=== PATIENT | male | born 1985 | race Caucasian/White ===

== ENCOUNTER 2022-09-21 09:35 | Observation (INO) | payer MEDICAID, SELFPAY ==
[2022-09-21] VITALS (10 sets, daily range): BP systolic 105–160; BP diastolic 67–101; PULSE 86–116; RESP 16–20; TEMP 36.6–36.8; O2SAT 95–100; BMI 26.4
--- NOTE | ~2022-09-21 | CT_ITS ---
EXAMINATION: CT brain wo con DATE: 09/21/2022 09:56 INDICATION: Seizure. Syncope. TECHNIQUE: Computed tomography (CT) of the head was performed without intravenous contrast. Sagittal and coronal reconstructions were performed. The dose Octavio head The dose-length product was 681.00 mGy-cm. COMPARISON: None FINDINGS: No acute intracranial hemorrhage, acute infarction or abnormal extra axial fluid collection. Ventricl es are normal and symmetric. No mass/mass effect. The orbits, paranasal sinuses and mastoid air cells are normal. IMPRESSION: 1. Normal head CT. Reviewed, dictated and finalized at location A. IMPRESSION: 1. Normal head CT.
--- NOTE | ~2022-09-21 | MR_ITS ---
EXAMINATION: MR brain/brain stem wo/w con DATE: 09/22/2022 08:39 INDICATION: Seizure TECHNIQUE: Magnetic resonance imaging (MRI) of the brain and brainstem was performed without and with 17 mL Multihance intravenous contrast. Sequences included sagittal and axial T1-weighted SE, axial d iffusion-weighted FS SE, axial T2*-weighted GRE, axial T2-weighted FLAIR Propeller, axial T2-weighted there are approximately 16 scattered small foci Propeller, coronal T2-weighted FLAIR, and coronal T1 -weighted 3D FSPGR. Postcontrast axial T1-weighted SE was obtained. Apparent diffusion coefficient (A DC) maps were created. COMPARISON: Head CT dated 09/21/2022 FINDINGS: There are no areas of restricted diffusion to suggest acute infarction. No intracranial hemorrhage or abnormal intracranial mass lesion. There are scattered areas of nonspecific increased T2-weighted si gnal intensity in the cerebral white matter, predominantly involving the subcortical and periventricu lar white matter this patient on the coronal T2 FLAIR images and which is disproportionate for age. T here are no intraparenchymal signal abnormalities seen on the other pulse sequences. Bilateral hippoc ampi appear normal and symmetric. No evident braun matter heterotopias or other neuronal migrational a bnormalities. The ventricles are symmetric and normal in size. There are no abnormal extra-axial flui d collections. Flow voids are seen in the cerebral arteries on the T2-weighted sequences consistent w ith their expected patency. Visualized orbits and soft tissues are unremarkable. There are no areas o f abnormal enhancement on the post contrast images. IMPRESSION: 1. Mild nonspecific cerebral white matter disease which is disproportionate for age. The differential diagnosis includes premature chronic small vessel ischemic disease (especially if the patient has ca rdiovascular risk factors), demyelinating disease such as multiple sclerosis, acute disseminated ence phalomyelitis (ADEM) or CADASIL, drug abuse, vasculitis, or reactive astrocytosis (gliosis) secondary to nonspecific etiology. Reviewed, dictated and finalized at location B. IMPRESSION: 1. Mild nonspecific cerebral white matter disease which is disproportionate for age. The differential diagnosis includes premature chronic small vessel ischem ic disease (especially if the patient has cardiovascular risk factors), demyeli nating disease such as multiple sclerosis, acute disseminated encephalomyelitis (ADEM) or CADASIL, drug abuse, vasculitis, or reactive astrocytosis (gliosis) secondary to nonspecific etiology.
--- NOTE | 2022-09-21 09:38 | ECG_ITS ---
Measurements Intervals Craig Rate: 107 P: 44 UT: 132 QRS: -1 QRSD: 102 T: 50 QT: 330 QTc: 440 Interpretive Statements SINUS TACHYCARDIA DELAYED PRECORDIAL R/S TRANSITION ABNORMAL ECG NO PREVIOUS ECG AVAILABLE FOR COMPARISON Electronically Signed On 09-21-2022 13:15:24 CDT by Christian Fenton D.O.
[2022-09-21 10:01] LABS: Glucose Point of Care 103 mg/dl (65-105)
[2022-09-21 10:11] LABS: Basophils Percent Auto 0.3 % (0.2-1.2); Eosinophils Absolute Auto 0.2 K/mm3 (0-0.3); Eosinophils Percent Auto 1.6 % (0-4.4); Hematocrit 40.9 % (42.0-52.0); Hemoglobin 13.9 g/dL (14.0-18.0); Immature Granulocyte Absolute 0.39 K/mm3 (0.00-0.031); Lymphocytes Absolute Auto 2.94 K/mm3 (0.9-3.2); Lymphocytes Percent Auto 30.1 % (18.3-44.2); Mean Corpuscular Hemoglobin 31.4 pg (26-34); Mean Corpuscular Volume 92.3 fl (80-100); Mean Platelet Volume 8.8 fl (7.4-10.4); Monocytes Absolute Auto 0.8 K/mm3 (0.1-0.6); Monocytes Percent Auto 7.9 % (2.6-8.5); Neutrophils Absolute Auto 5.5 K/mm3 (1.3-6.7); Neutrophils Percent Auto 56.1 % (45.5-73.1); Platelet Count Result 389 k/mm3 (150-375); Red Blood Count 4.43 M/mm3 (4.6-6.20); Red Cell Distribution Width 13.2 % (11.5-14.5); White Blood Count 9.8 K/mm3 (4.5-10.0)
[2022-09-21 10:21] LABS: Alanine Aminotransferase 58 U/L (6-50); Albumin Level 4.9 g/dL (3.5-5.1); Alkaline Phosphatase 51 U/L (38-126); Anion Gap 9 mmol/L (8-16); Aspartate Amino Transferase 37 U/L (17-59); Bilirubin,Total 0.4 mg/dL (0.2-1.3); Blood Urea Nitrogen 13 mg/dL (9-20); Calcium 9.8 mg/dL (8.4-10.2); Carbon Dioxide 28 mmol/L (22-30); Chloride 101 mmol/L (98-107); Estimated CRCL calculation 116 ml/min; Estimated Glomerular Filt Rate > 60; Glucose 106 mg/dL (65-110); Magnesium 2.1 mg/dL (1.6-2.3); Potassium 4.3 mmol/L (3.4-5.0); Sodium 138 mmol/L (137-145)
--- NOTE | 2022-09-21 10:46 | ED.GENADULT ---
HPI - General Adult General Chief complaint: Syncope Stated complaint: syncopy Time Seen by Provider: 09/21/22 09:37 History of Present Illness HPI narrative: 37-year-old male presenting to the emergency department for evaluation after having a syncopal episode while sitting and drinking coffee with family. Patient states he was drinking coffee and next thing he remembers is waking up with EMS. Family states that the patient did lift his arms in the air and fell to the ground. They state he did have some minor shaking but no significant seizure-like activity but they do report that he has sonorous respirations. They state the patient was minimally responsive for about 5 minutes and then after about 10 minutes the patient began talking again. When EMS arrived EMS reports that the patient did appear to be postictal. Patient does remember EMS arriving and does remember feeling confused. Patient feels he is back to his normal baseline at this time. Patient denies biting his tongue, denies loss of bladder control. Patient denies any new pain or injury related to the activity today. Patient does take medications for blood pressure and did have his blood medications changed. Patient states that he does have a prior history of orthostatic hypotension but patient was resting when this occurred. Patient is unsure if he had a prior seizure but reports a few years ago that he was working on a carburetor and mother reported that the patient having some seizure-like activity. Patient does state that he recently quit drinking alcohol approximately 3 weeks ago but denies any prior history of alcohol withdrawal denies any history of alcohol withdrawal seizures specifically. Patient is visiting family and is from [place]. Related Data Home Medications Medication Instructions Recorded Confirmed bupropion HCl 300 mg 24 hr tablet, 300 mg PO DAILY 09/21/22 09/21/22 extended release gabapentin 300 mg capsule 300 mg PO BID 09/21/22 09/21/22 lisinopril 20 1 tablet PO DAILY 09/21/22 09/21/22 mg-hydrochlorothiazide 12.5 mg tablet multivitamin with minerals-folic 1 tablet PO DAILY 09/21/22 09/21/22 acid 0.4 mg tablet tramadol 50 mg tablet 50 mg PO BID 09/21/22 09/21/22 Allergies Allergy/AdvReac Type Severity Reaction Status Date / Time azithromycin AdvReac Nausea and Verified 09/21/22 12:20 Vomiting Review of Systems Review of Systems: All systems reviewed & are unremarkable except as noted in HPI and below PMFSH Past Medical History Medical History (Updated 09/21/22 @ 13:42 by aCmila Easton NP) Depression Hypertension Sciatica Shoulder pain Tobacco abuse Surgical History Surgical History (Updated 09/21/22 @ 13:42 by Camila Easton NP) H/O hernia repair History of tonsillectomy and adenoidectomy Family History Family History (Updated 09/21/22 @ 13:50 by Camila Easton NP) Father Bypass graft mechanical complication DDD (degenerative disc disease) Hypertension Diabetes mellitus Mother Hyperlipidemia Grandparent Cerebrovascular accident Other Cardiomyopathy uncle Social History Social History (Updated 09/21/22 @ 16:18 by Camila Easton NP) Social History: He currently lives with his parents. 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 The patient used to drink heavily and now only drinks on occasion. No drug history code full code parents Smoking status: Current some day smoker Tobacco type: cigarettes Second hand tobacco smoke exposure: No Alcohol intake: former Drinks per week: 1 Substance use: never Substance use type: does not use Lack of Transportation: No Lack of Food: Never True Current Housing: I Have Housing Concerned About Future Housing: No Difficulty Paying Gas/Electric Bills: No Difficulty Paying for Meds: No Currently Unemployed: No Education: Trade/Vocational Certificate Difficulty w/ Childcare or Family Care: No
[2022-09-21 10:47] LABS: Influenza A QL RT-PCR Negative (Negative); Influenza B QL RT-PCR Negative (Negative); RSV RNA, RT-PCR Negative (Negative); SARS-CoV-2 RNA PCR Negative
[2022-09-21] MEDS: SODIUM CHLORIDE 0.9% IV 1,000 ML 999 ML IV CONT (11:13)
--- NOTE | 2022-09-21 12:17 | PC.NURSE ---
went to dc the pt, pt abruptly began to seize. pt snoring, eyes rolled backwards. bilateral arms moving in rythmic motion. Dc postponed for now, Dr Álvarez to assess the pt
[2022-09-21] MEDS: levETIRAcetam 1000MG/NACL100ML 1,000 MG/100 ML BAG 400 MG IVPB ×2 (12:24→20:49)
[2022-09-21] MEDS: LORazepam INJ (*CRX) 2 MG/ML VIAL IV PUSH (12:43)
--- NOTE | 2022-09-21 13:35 | PM.IMHP ---
H&P: HPI History of Present Illness Date/Time: 09/21/22 13:35 Chief Complaint: Syncope Narrative: This is a 37-year-old male patient who came to the emergency room for possible syncopal episode. The patient was sitting and drinking coffee with the family. The family stated that the patient did lift his arms in the air and fell to the ground. The patient does not recall this at all. The patient had some minor shaking but no significant seizure-like activity. The patient did have snores respirations after that. Patient was lethargic after that. The patient was minimally responsive for 5 minutes and then after 10 minutes the patient did start to respond. The patient denies biting his tongue or being incontinent of urine. The patient just remembers that he woke up on the floor and EMS was surrounding him. The patient was recently started on gabapentin and tramadol for chronic back pain. The patient also recently had blood pressure medication changed. The family thought that the patient had a seizure many years ago when he was cleaning out a carburetor he had tremors. The patient is not a binge drinker according to the family members. He denies any alcohol withdrawal seizures. Neurology has been consulted. Head CT was read as normal head CT. H&H is 13.9 and 40.9. Patient was negative for follow-up on the a/b RSV and COVID. Patient is being admitted to observation status on 09/21/2022. Review of Systems Review of Systems: See HPI All systems reviewed & are unremarkable except as noted in HPI and below Constitutional: Constitutional: Reports as per HPI and Reports no additional constitutional complaints Eyes: Eyes: Reports as per HPI and Reports no additional eye complaints ENT: Reports system reviewed and no additional complaints, except as documented and Reports Normal hearing present Cardiovascular: Cardiovascular: Reports no additional cardiovascular complaints Respiratory: Respiratory: Reports no additional respiratory complaints and Reports no additional respiratory complaints Gastrointestinal: Gastrointestinal: Reports as per HPI and Reports no additional gastrointestinal complaints Musculoskeletal: Musculoskeletal: Reports no additional musculoskeletal complaints Integumentary/Breasts: Skin/Breast: Reports system reviewed and no additional complaints, except as docu and Reports as per HPI Neurologic: Reports system reviewed and no additional complaints, except as documented, Reports as per HPI and Reports Normal hearing present Psychiatric: Psychiatric: Reports no additional psychiatric complaints and Reports as per HPI Endocrine: Endocrine: Reports no additional endocrine complaints Hematologic/Lymphatic: Hematologic/Lymphatic: Reports no additional hematologic/lymphatic complaints Allergic/Immunologic: Allergic/Immunologic: Reports no additional allergic/immunologic complaints [facility] Past Medical History Medical History (Updated 09/21/22 @ 13:42 by Camila Easton NP) Depression Hypertension Sciatica Shoulder pain Tobacco abuse Surgical History Surgical History (Updated 09/21/22 @ 13:42 by Camila Easton NP) H/O hernia repair History of tonsillectomy and adenoidectomy Family History Family History (Updated 09/21/22 @ 13:50 by Camila Easton NP) Father Bypass graft mechanical complication DDD (degenerative disc disease) Hypertension Diabetes mellitus Mother Hyperlipidemia Grandparent Cerebrovascular accident Other Cardiomyopathy uncle Social History Social History (Updated 09/21/22 @ 16:18 by Camila Easton NP) Social History: He currently lives with his parents. 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 The patient used to drink heavily and now only drinks on occasion. No drug history code full code parents Smoking status: Current some day smoker Tobacco type: cigarettes Second hand tobacco smoke exposure: No Alcohol intake: former D
--- NOTE | 2022-09-21 14:53 | ADMGEN ---
This patient, Jose Velázquez, was admitted to [facility] Room 304-01 at 1445. Patient/family oriented to hospital policies and general routines including ID bracelet, bed and alarms, visiting hours, pain management, procedures, bathroom and other care routines, personal items, smoking policy, room service/diet, and visiting hours. Information on how to activate the Rapid Response Team has been discussed. Patient/Family are encouraged to report perceived risks to care and to ask questions if they do not understand what they are told or what they should do.
[2022-09-21] MEDS: ACETAMINOPHEN 500 MG TABLET 1000 MG PO (22:29)
[2022-09-22] VITALS (9 sets, daily range): BP systolic 97–123; BP diastolic 58–70; PULSE 75–101; RESP 14–16; TEMP 36.3–36.9; O2SAT 96–100
[2022-09-22 06:41] LABS: Basophils Absolute Auto 0.1 K/mm3 (0.0-0.1); Basophils Percent Auto 0.8 % (0.2-1.2); Eosinophils Absolute Auto 0.2 K/mm3 (0-0.3); Hematocrit 37.9 % (42.0-52.0); Hemoglobin 12.8 g/dL (14.0-18.0); Immature Granulocyte Absolute 0.34 K/mm3 (0.00-0.031); Immature Granulocyte Percent A 3.7 % (0-0.5); Lymphocytes Absolute Auto 2.76 K/mm3 (0.9-3.2); Lymphocytes Percent Auto 29.7 % (18.3-44.2); Mean Corpuscular HGB Conc 33.8 g/dl (32-36); Mean Corpuscular Hemoglobin 31.6 pg (26-34); Mean Corpuscular Volume 93.6 fl (80-100); Mean Platelet Volume 8.5 fl (7.4-10.4); Monocytes Absolute Auto 0.7 K/mm3 (0.1-0.6); Monocytes Percent Auto 7.2 % (2.6-8.5); Neutrophils Absolute Auto 5.3 K/mm3 (1.3-6.7); Neutrophils Percent Auto 56.6 % (45.5-73.1); Platelet Count Result 319 k/mm3 (150-375); Red Blood Count 4.05 M/mm3 (4.6-6.20); Red Cell Distribution Width 13.2 % (11.5-14.5); White Blood Count 9.3 K/mm3 (4.5-10.0)
[2022-09-22 06:46] LABS: Alanine Aminotransferase 55 U/L (6-50); Albumin Level 4.4 g/dL (3.5-5.1); Alkaline Phosphatase 43 U/L (38-126); Anion Gap 5 mmol/L (8-16); Aspartate Amino Transferase 38 U/L (17-59); Bilirubin,Total 0.3 mg/dL (0.2-1.3); Blood Urea Nitrogen 12 mg/dL (9-20); Carbon Dioxide 28 mmol/L (22-30); Chloride 102 mmol/L (98-107); Estimated CRCL calculation 131 ml/min; Estimated Glomerular Filt Rate > 60; Glucose 93 mg/dL (65-110); Magnesium 2.2 mg/dL (1.6-2.3); Potassium 4.2 mmol/L (3.4-5.0); Sodium 135 mmol/L (137-145)
[2022-09-22 06:49] LABS: Lactic Acid Reflex 1.1 mmol/L (0.7-2.0)
[2022-09-22] MEDS: buPROPion HCL XL (24 HR) 150 MG TABCR 300 MG PO (09:16)
[2022-09-22] MEDS: ACETAMINOPHEN 500 MG TABLET 1000 MG PO ×2 (09:16→17:51)
[2022-09-22] MEDS: THERAPEUTIC MULTIVITAMINS/MINERALS TAB (*BKC) 1 TABLET PO (09:17)
[2022-09-22] MEDS: lisinopriL 20 MG TABLET PO (09:17)
[2022-09-22] MEDS: hydroCHLOROthiazide 12.5 MG CAPSULE PO (09:17)
--- NOTE | 2022-09-22 09:54 | WPDNEURCNPN ---
Assessment and Plan Assessment and plan (1) Seizure-like activity: Code(s): R56.9 - Unspecified convulsions Status: Acute (2) Tobacco abuse: Code(s): Z72.0 - Tobacco use Status: Acute (3) Hypertension: Code(s): I10 - Essential (primary) hypertension Status: Acute Plan Jose Velázquez is a 37 year old male with a history of depression, sciatrica, tobacco use, and hypertension presenting due to concerns for seizure-like activity. Concern for syncopal episodes vs seizure. Discussed option of starting anti-seizure medications with patient. Given the uncertainty around the episode, decision was made to hold off for now. - Obtain MRI brain and routine EEG - No driving until event free for 6 months Consult date: 09/22/22 Reason for consult: Syncope HPI: Jose Velázquez is a 37 year old male with a history of depression, sciatrica, tobacco use, and hypertension presenting due to concerns for seizure-like activity. Patient presented on 09/21 after an episode that occured while he was sitting with his family. Family reports patient lifted in arms in the air and felt to the ground. Patient has no recollection of the episode. He did have some minor shaking movements but no obvious seizure-like activity. He did have some agonal breathing as well and was lethargic afterwards. It took about 10 minutes after the episode for him to start to response. There was no tongue biting or urinary incontinence. EMS was called. Of note, patient was recently started on gabapentin and tramadol for chronic back pain, and also had blood pressure medication recently changed. In the ED CT head was normal and labs were unrevealing. Review of Systems Constitutional: Constitutional: Reports no additional constitutional complaints Eyes: Eyes: Reports no additional eye complaints ENT: Reports system reviewed and no additional complaints, except as documented Cardiovascular: Cardiovascular: Reports no additional cardiovascular complaints Respiratory: Respiratory: Reports no additional respiratory complaints Gastrointestinal: Gastrointestinal: Reports no additional gastrointestinal complaints Genitourinary: Genitourinary: Reports no additional male genitourinary complaints Musculoskeletal: Musculoskeletal: Reports back pain Integumentary/Breasts: Skin/Breast: Reports system reviewed and no additional complaints, except as docu Neurologic: Reports as per HPI Psychiatric: Psychiatric: Reports no additional psychiatric complaints [facility] Past Medical History Medical History Depression Hypertension Sciatica Shoulder pain Tobacco abuse Surgical History Surgical History H/O hernia repair History of tonsillectomy and adenoidectomy Family History Family History Father Bypass graft mechanical complication DDD (degenerative disc disease) Hypertension Diabetes mellitus Mother Hyperlipidemia Grandparent Cerebrovascular accident Other Cardiomyopathy uncle Social History Social History Social History: He currently lives with his parents. 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 The patient used to drink heavily and now only drinks on occasion. No drug history code full code parents Smoking status: Current some day smoker Tobacco type: cigarettes Second hand tobacco smoke exposure: No Alcohol intake: former Drinks per week: 1 Substance use: never Substance use type: does not use Lack of Transportation: No Lack of Food: Never True Current Housing: I Have Housing Concerned About Future Housing: No Difficulty Paying Gas/Electric Bills: No Difficulty Paying for Meds: No Currently Unemployed: No Education: Trade/Vocational Certificate Difficulty w
[2022-09-22] MEDS: levETIRAcetam 1000MG/NACL100ML 1,000 MG/100 ML BAG 400 MG IVPB ×2 (10:00→20:55)
[2022-09-22] MEDS: LIDOCAINE 5% PATCH 1 PATCH TRANSDERM (10:00)
--- NOTE | 2022-09-22 14:08 | WPDNEUROLOGY ---
Neurology EEG Report General Information Date of Study: 09/22/22 TEST Routine EEG DIAGNOSIS Seizure like activity CONDITION OF RECORDING Awake, drowsy, asleep EEG NUMBER [id number] CLINICAL HISTORY Patient had an episode of loss of consciousness with some mild shaking of the extremities. He has no recollection of the episode. EEG DESCRIPTION During the awake state with eyes closed the background consists of 9 Hz posterior dominant rhythm which attenuates appropriately with eye opening. The recording is continuous. There is a well developed anterior-posterior gradient. No significant asymmetries of background activities are noted. With drowsiness there is was waxing and waning of the dominant rhythm with eventual replacement by a mixture of beta, alpha, and theta activity. As the patient enters sleep, POSTS and sleep spindles are noted. Arousal is unremarkable. There are no epileptiform discharges or seizures during this recording. Hyperventilation and photic stimulation were not performed. IMPRESSION This is a normal routine EEG recorded in awake and asleep states. There are no electrographic seizures identified, nor are there any epileptiform discharges. Please note that a normal EEG cannot exclude a seizure disorder. Clinical correlation is recommended.
--- NOTE | 2022-09-22 16:02 | PM.IMPN ---
Progress Note: A&P Assessment and Plan (1) Seizure-like activity: Code(s): R56.9 - Unspecified convulsions Status: Acute Assessment and Plan: patient had a witnessed episode of loss of consciousness without overt tonic clonic seizure activity appreciate neurology consultation EEG completed which was unremarkable head CT with no acute findings brain MRI with mild nonspecific cerebral white matter disease disproportionate for age (see below) urine drug screen pending patient was recently started on gabapentin and tramadol which could have exacerbated possible seizure. patient is also on bupropion which can lower seizure threshold. hold all medications at this time patient started on Keppra on admission which is being continued at this time. per Neurology, patient has made the decision to hold off on continued anti seizure medications as an outpatient (2) Abnormal brain MRI: Code(s): R90.89 - Other abnormal findings on diagnostic imaging of central nervous system Status: Acute Assessment and Plan: brain MRI with mild nonspecific cerebral white matter disease does report vision her age with broad differential including premature chronic small-vessel ischemic disease, demyelinating disease including MS, ADEM, CADASIL, drug abuse, vasculitis, or reactive astrocytosis appreciate neurology recommendations on necessary follow-up (3) Depression: Code(s): F32.A - Depression, unspecified Status: Acute Assessment and Plan: mood is stable at this time bupropion on hold as noted above (4) Sciatica: Code(s): M54.30 - Sciatica, unspecified side Status: Acute Assessment and Plan: recently started on gabapentin and tramadol for chronic back pain secondary to sciatica both on hold at this time consider nonnarcotic modalities for pain management (5) Hypertension: Code(s): I10 - Essential (primary) hypertension Status: Acute Assessment and Plan: blood pressures are stable at this time. Last BP 123/70 continue lisinopril-hydrochlorothiazide monitor blood pressures trends Subjective Date/time seen: 09/22/22 16:02 Interval history: date of service: 09/22/2022 Jose Velázquez is a 37-year-old male with history of hypertension, depression, tobacco abuse who is seen in follow-up for suspected seizure activity. patient reports that he is doing well today. He does not recall the episode at all. He did feel confused after, but she beats this to not knowing where he was. He denies any tongue or lip biting. no episodes of incontinence. Today he feels like he is in his usual state of health. Review of Systems Review of Systems: All systems reviewed & are unremarkable except as noted in HPI and below Exam Narrative: General: Well-nourished, well-appearing 37-year-old male, sitting up in bed, comfortable, NARD Neuro: awake, alert and oriented x4, speech clear, no focal neuro deficits noted HEENMT: normocephalic, atraumatic, EOMI, sclerae anicteric Respiratory: clear to auscultation bilaterally, nonlabored breathing Cardio: regular rate, regular rhythm with S1-S2 Abdomen: nondistended, normoactive bowel sounds, soft, nontender to palpation Extremities: no edema, erythema, or tenderness to palpation Skin: no rashes or lesions, warm and dry Psych: appropriate mood and affect, judgment and insight intact Objective Data Vital Signs Vital Signs: Vital Signs - 24 hr 09/21/22 21:49 09/21/22 20:00 09/22/22 00:00 Temperature 97.8 F Pulse Rate 106 H 86 87 Respiratory Rate 16 Blood Pressure 130/80 Pulse Oximetry 100 Oxygen Delivery 09/22/22 04:00 09/22/22 05:55 09/22/22 10:21 Temperature 98.4 F Pulse Rate 75 101 H Respiratory Rate 16 Blood Pressure 97/58 L Pulse Oximetry 100 96 Oxygen Delivery Room Air 09/22/22 08:00 09/22/22 14:00 Temperature 97.3 F L Pul
[2022-09-22 21:30] LABS: Amphetamine Screen Urine Negative (Negative); Barbiturate Screen Urine Negative (Negative); Benzodiazepines Screen Urine Negative (Negative); Cannabinoid Screen Urine Negative (Negative); Cocaine Screen Urine Negative (Negative); Methadone Screen Urine Negative (Negative); Opiate Screen Urine Negative (Negative); Phencyclidine Screen Urine Negative (Negative)
[2022-09-23] VITALS: PULSE 76
[2022-09-23 04:00] VITALS: PULSE 68
[2022-09-23 05:54] VITALS: BP 127/73; PULSE 71; RESP 14; TEMP 36.1; O2SAT 100
[2022-09-23] MEDS: ACETAMINOPHEN 500 MG TABLET 1000 MG PO (06:11)
[2022-09-23 07:44] LABS: Hematocrit 40.5 % (42.0-52.0); Hemoglobin 13.7 g/dL (14.0-18.0); Mean Corpuscular HGB Conc 33.8 g/dl (32-36); Mean Corpuscular Hemoglobin 31.9 pg (26-34); Mean Corpuscular Volume 94.2 fl (80-100); Mean Platelet Volume 8.4 fl (7.4-10.4); Platelet Count Result 349 k/mm3 (150-375); Red Cell Distribution Width 13.2 % (11.5-14.5); White Blood Count 7.4 K/mm3 (4.5-10.0)
[2022-09-23 08:00] VITALS: PULSE 73
[2022-09-23 08:02] LABS: Anion Gap 7 mmol/L (8-16); Blood Urea Nitrogen 13 mg/dL (9-20); Calcium 9.2 mg/dL (8.4-10.2); Carbon Dioxide 29 mmol/L (22-30); Chloride 105 mmol/L (98-107); Estimated CRCL calculation 116 ml/min; Estimated Glomerular Filt Rate > 60; Glucose 104 mg/dL (65-110); Potassium 4.8 mmol/L (3.4-5.0); Sodium 141 mmol/L (137-145)
[2022-09-23] MEDS: hydroCHLOROthiazide 12.5 MG CAPSULE PO (09:04)
[2022-09-23] MEDS: THERAPEUTIC MULTIVITAMINS/MINERALS TAB (*BKC) 1 TABLET PO (09:04)
[2022-09-23] MEDS: lisinopriL 20 MG TABLET PO (09:04)
--- NOTE | 2022-09-23 11:17 | PM.DS ---
DS: Admitting Diagnosis Discharge Date 09/23/2022 Admitting Diagnosis seizure-like activity DS: Discharge Diagnosis Discharge Diagnosis (1) Seizure-like activity: Code(s): R56.9 - Unspecified convulsions Status: Acute Assessment and Plan: patient had a witnessed episode of loss of consciousness without overt tonic clonic seizure activity Seizure favored over syncope based on description of events Seen in consultation by Neurology EEG completed which was unremarkable head CT with no acute findings brain MRI with mild nonspecific cerebral white matter disease disproportionate for age (see below) patient was recently started on tramadol which could have exacerbated possible seizure. patient is also on bupropion which can lower seizure threshold. Tramadol was discontinued and patient will follow-up with his pain management for alternative options. Bupropion was tapered and will need continue to be weaned off as an outpatient per his PCP patient started on Keppra on admission, however neurology discussed risks versus benefits with patient and make collaborative decision to hold off on anti seizure medications given uncertainty surrounding event He will follow-up with neurology as an outpatient. Patient is not live in this area and will follow-up with his PCP for a local neurology referral (2) Abnormal brain MRI: Code(s): R90.89 - Other abnormal findings on diagnostic imaging of central nervous system Status: Acute Assessment and Plan: brain MRI with mild nonspecific cerebral white matter disease disproportionate for age with broad differential including premature chronic small-vessel ischemic disease, demyelinating disease including MS, ADEM, CADASIL, drug abuse, vasculitis, or reactive astrocytosis Discussed results with Neurology. No further evaluation required at this time. Outpatient Neurology follow-up for repeat imaging in 6 months (3) Depression: Code(s): F32.A - Depression, unspecified Status: Acute Assessment and Plan: mood remained stable bupropion decreased from 300 mg to 150 mg. Continue to taper. Consider alternative antidepressants per PCP (4) Sciatica: Code(s): M54.30 - Sciatica, unspecified side Status: Acute Assessment and Plan: recently started on gabapentin and tramadol for chronic back pain secondary to sciatica Tramadol discontinued Patient has outpatient pain management appointment in 2 weeks. Will follow-up at that time for alternative pain control options. Consider nonnarcotic modalities for pain management (5) Hypertension: Code(s): I10 - Essential (primary) hypertension Status: Acute Assessment and Plan: blood pressures remained stable during admission continue lisinopril-hydrochlorothiazide DS: Summary Hospital Course Hospital Course: date of admission: 09/21/2022 date of discharge: 09/23/2022 Jose Velázquez is a 37-year-old male with history of hypertension, depression, and tobacco abuse who presented to the emergency department on 09/21/2022 after a syncopal episode versus seizure while sitting with his family. Patient fell to the ground and was poorly responsive for about 5 minutes remained confused after, no tongue biting activity or loss of bladder control. On presentation to the ED, he was tachycardic at 110., additional vital signs stable, CBC and BMP unremarkable, glucose 103,TSH within normal limits, head CT with no acute findings. He was admitted to the hospitalist service for further evaluation and management and was seen in consultation by Neurology. Please see above for further details. Following discussion with Neurology, anti seizure medication was deferred given uncertainty surrounding episode. Seizure precautions were still discussed at length and patient has been instructed to avoid driving, swimming, or other activities that would put him at r
== END 2022-09-23 11:45 | disposition home or self-care (01) ==
LOC: ANHED 13:23 → ANH3MEDSUR 16:35
PROVIDERS: Nurse Practitioner; Admitting Provider Chiropractor; Emergency Provider Emergency Medicine; Visit Provider Physician Assistant
DX: R56.9 Unspecified convulsions (principal); F32.A Depression, unspecified; M54.30 Sciatica, unspecified side; I10 Essential (primary) hypertension; R00.0 Tachycardia, unspecified; Z20.822 Contact with and (suspected) exposure to COVID-19; R90.82 White matter disease, unspecified; R94.31 Abnormal electrocardiogram [ECG] [EKG]; F17.210 Nicotine dependence, cigarettes, uncomplicated; Z79.891 Long term (current) use of opiate analgesic; Z79.899 Other long term (current) drug therapy; Z82.49 Family history of ischemic heart disease and other diseases of the circulatory system
CPT/HCPCS: 36415; 70450; 70553; 80048; 80053; 80307; 82948; 83605; 83735; 84443; 85025; 85027; 87637; 93005; 95816; 96361; 96365; 96375; 96376; 99285; A9270; A9577; G0378; G0379; J1953; J2060; J7030